=== PATIENT | female | born 1995 | race Caucasian/White ===

== ENCOUNTER → 2019-05-21 | Outpatient (CLI) | payer BC ==
[2019-05-22 08:12] LABS: HEPATITIS B SURFACE AG Negative (Negative)
[2019-05-22 09:07] LABS: RUBELLA AB IGM 096537 <20.0 AU/mL (0.0-19.9)
[2019-05-22 15:07] LABS: VARICELLA-ZOSTER IGG 096206 1690 index (Immune >165)
== END | disposition home or self-care (01) ==
LOC: LAB 12:43
PROVIDERS: Physician Assistant Medical
DX: Z13.220 Encounter for screening for lipoid disorders (principal); Z01.84 Encounter for antibody response examination